=== PATIENT | female | born 1995 | race Caucasian/White ===

== ENCOUNTER 2018-12-17 11:21 | Emergency (ER) | payer OTHER ==
--- NOTE | 2018-12-17 12:58 | UC ---
Lower Extremity/Ankle HPI - HPI Summary HPI Summary: Patient is a 23-year-old female who presents to the urgent care with a chief complaint of left calf pain. Patient reports that she's been having this pain this morning. She denies any history of Traveling with Flying. She Reports Taking Oral Contraceptive Pills. She Denies Any Smoking. She Denies Any Shortness of Breath, Chest Pain or Any Other Complaint. - History of Current Complaint Chief Complaint: UCLowerExtremity Stated Complaint: PAIN IN LOWER LEG Time Seen by Provider: 12/17/18 11:26 Hx Obtained From: Patient Hx Last Menstrual Period: 11/17/18 ?: No Onset/Duration: Sudden Onset Severity Initially: Mild Pain Intensity: 2 - Allergies/Home Medications Allergies/Adverse Reactions: Allergies Allergy/AdvReac Type Severity Reaction Status Date / Time No Known Allergies Allergy Verified 12/17/18 11:37 Home Medications: Home Medications FLUoxetine* [Prozac*] 1 tab PO DAILY 12/17/18 [History Confirmed 12/17/18] l-Norgest/E.estradiol-E.estrad [Amethia Lo Tablet] 1 tab PO DAILY 12/17/18 [ History Confirmed 12/17/18] PMH/Surg Hx/FS Hx/Imm Hx Previously Healthy: Yes - Surgical History Surgical History: Yes Surgery Procedure, Year, and Place: tonsils - Family History Known Family History: Positive: Non-Contributory - Social History Alcohol Use: Occasionally Substance Use Type: None Smoking Status (MU): Never Smoked Tobacco Review of Systems All Other Systems Reviewed And Are Negative: Yes Constitutional: Positive: Negative Skin: Positive: Negative Eyes: Positive: Negative ENT: Positive: Negative Respiratory: Positive: Negative Cardiovascular: Positive: Negative Gastrointestinal: Positive: Negative Genitourinary: Positive: Negative Motor: Positive: Negative Neurovascular: Positive: Negative Musculoskeletal: Positive: Calf Tenderness Neurological: Positive: Negative Psychological: Positive: Negative Is Patient Immunocompromised?: No Physical Exam - Summary Physical Exam Summary: VITAL SIGNS: Reviewed. GENERAL: Patient is a well developed and nourished female who is lying comfortably in the stretcher. Patient is not in any acute respiratory distress. HEAD AND FACE: No signs of trauma. No ecchymosis, hematomas or skull depressions. No sinus tenderness. EYES: PERRLA, EOMI x 2, No injected conjunctiva, no nystagmus. EARS: Hearing grossly intact. Ear canals and tympanic membranes are within normal limits. MOUTH: Oropharynx within normal limits. NECK: Supple, trachea is midline, no adenopathy, no JVD, no carotid bruit, no c- spine tenderness, neck with full ROM. CHEST: Symmetric, no tenderness at palpation LUNGS: Clear to auscultation bilaterally. No wheezing or crackles. CVS: Regular rate and rhythm, S1 and S2 present, no murmurs or gallops appreciated. ABDOMEN: Soft, non-tender. No signs of distention. No rebound no guarding, and no masses palpated. Bowel sounds are normal. EXTREMITIES: FROM in all major joints, no edema, no cyanosis or clubbing. Slight left calf tenderness but negative Homans sign NEURO: Alert and oriented x 3. No acute neurological deficits. Speech is normal and follows commands. SKIN: Dry and warm Triage Information Reviewed: Yes Appearance: Well-Appearing Vital Signs: Initial Vital Signs Temp 99.2 F 12/17/18 11:34 Pulse 84 12/17/18 11:34 Resp 18 12/17/18 11:34 BP 132/81 12/17/18 11:34 Pulse Ox 100 12/17/18 11:34 Vital Signs Reviewed: Yes Lower Extremity Course/Dx - Course Course Of Treatment: Left lower extremity ultrasound impression: Negative for DVT. Therefore, believe that the patient's pain is secondary to muscular skeletal pain. She was recommended to take ibuprofen for the pain. patient was discharged home with follow with primary care physician. - Differential Dx/Diagnosis Provider Diagnosis: Calf pain Discharge ED - Sign-Out/Discharge Documenting (check all that apply): Patient Departure All imaging exams completed and their final reports reviewed: Yes - Discharge Plan Condition: Stable Disposition: HOME Patient Education Materials: Musculoskeletal Pain (ED) Referrals: No Primary Care Phys,NOPCP [Primary Care Provider] - [facility] [Outside] Additional Instructions: Visual will be discharged home with follow-up with PCP. Patient is hemodynamically stable alert and oriented 3. - Billing Disposition and Condition Condition: STABLE Disposition: Home
== END 2018-12-17 13:04 | disposition home or self-care (01) ==
LOC: UCEAST 11:21
DX: M79.662 Pain in left lower leg (principal)
CPT/HCPCS: 99201; G0463